=== PATIENT | male | born 1965 | race Hispanic/Latino ===

== ENCOUNTER → 2020-05-23 | Day surgery (SDC) | payer BC, OTHER ==
[~2020-05-23] MED LIST: FENTANYL CITRATE/PF 100MCG/2 ML INJ ONE; FISH OIL 1,0001 EAC2 PO; KRILL OIL; MIDAZOLAM HCL 2 MG/2 ML VIAL ONE; MUSCLE RELAXER PO; NORCO PO; SOMA PO; TYLENOL # 31 EA PO; TYLENOL 4; zyrtec
[2020-05-23 18:30] VITALS: BP 135/98
== END | disposition home or self-care (01) ==
LOC: OR 12:58
PROVIDERS: ATTEND Internal Medicine Gastroenterology
DX: K29.70 Gastritis, unspecified, without bleeding (principal); D12.3 Benign neoplasm of transverse colon; D12.4 Benign neoplasm of descending colon; K31.7 Polyp of stomach and duodenum; B37.81 Candidal esophagitis; K21.00 Gastro-esophageal reflux disease with esophagitis, without bleeding; K62.89 Other specified diseases of anus and rectum; K62.5 Hemorrhage of anus and rectum; K31.89 Other diseases of stomach and duodenum; K92.89 Other specified diseases of the digestive system; K64.8 Other hemorrhoids; G47.33 Obstructive sleep apnea (adult) (pediatric); Z01.810 Encounter for preprocedural cardiovascular examination; Z01.812 Encounter for preprocedural laboratory examination; Z20.822 Contact with and (suspected) exposure to COVID-19; Z68.34 Body mass index [BMI] 34.0-34.9, adult
CPT/HCPCS: 43239; 45384; 93005; J2250; J3010; U0002